=== PATIENT | male | born 1955 | race Hispanic/Latino ===

== ENCOUNTER 2018-05-18 09:31 | Outpatient (CLI) | payer OTHER ==
--- NOTE | 2018-05-18 14:04 | Cat Scan Report ---
FINAL REPORT EXAM: CT ANGIO ABDOMEN PELVIS HISTORY: ABDOMINAL AORTIC ANEURYSM W/O RUPTURE TECHNIQUE: CTA of the abdomen and pelvis was performed after the administration of intravenous contrast. Reconstructions were included in the coronal and sagittal planes. PRIORS: None. FINDINGS: Lower thorax: A thin walled cystic structure is seen along the posterior mediastinum along the left posterior aspect of the inferior thoracic aorta measuring 5.3 x 3.7 centimeters trans axially. Mild bilateral dependent atelectasis is seen. Mild emphysematous changes are seen in the lung bases. The visualized portions of the heart are normal. Liver: The liver is diffusely low in attenuation. No intrahepatic biliary duct dilation. No focal hepatic lesions. Gallbladder/ biliary system: No cholelithiasis. The common bile duct appears nondilated. Spleen: No splenic lesions are seen. Pancreas: No pancreatic lesions are seen. No pancreatic duct dilation. Kidneys: There is a tiny simple left renal cyst. Tiny low-attenuation right renal lesion is too small to characterize but likely represents a small cyst. No hydronephrosis. Adrenal glands: No adrenal masses. Vasculature: Fusiform infrarenal abdominal aortic aneurysm is seen measuring 3.2 centimeters AP by 3.1 centimeters transverse over a length of 4.8 centimeters. There is calcified and noncalcified atherosclerotic plaque within the abdominal aorta and branch vessels. The celiac axis, SMA, renal arteries and DARRIAN are patent. The common, internal and external iliac arteries are patent. There is a small focal aneurysm of the left internal iliac artery measuring 1 centimeter. No evidence of aortic dissection. No evidence of aneurysm rupture. Lymph nodes: No enlarged lymph nodes are seen in the abdomen or pelvis. Bowel, mesentery, peritoneum: No bowel obstruction. No free fluid or free air. The appendix is normal. No colonic diverticulosis. No bowel wall thickening. Urinary bladder: No filling defects are seen. Pelvis: Normal anatomy is noted. No masses. Abdominal wall: No abdominal wall hernia or other subcutaneous findings. Bones: A bone island is seen in the left iliac bone. Degenerative changes are seen in the spine. IMPRESSION: 1. 3.2 centimeter infrarenal abdominal aortic aneurysm. 2. 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 3. Simple and probable simple bilateral renal cysts. 4. Cystic structure in the left posterior mediastinum may represent an enteric duplication cyst versus a bronchogenic cyst. 5. Hepatic steatosis.
== END 2018-05-18 09:32 | disposition home or self-care (01) ==
LOC: CT 09:31
PROVIDERS: ATTEND Surgery Vascular Surgery
DX: I71.4 Abdominal aortic aneurysm, without rupture (principal)
CPT/HCPCS: 36415; 74174; 82565; 84520; Q9967